=== PATIENT | female | born 1990 | race Two or more races ===

== ENCOUNTER → 2018-02-02 | Outpatient (CLI) | payer BC ==
[2015-12-09 13:15] VITALS: BP 126/88
--- NOTE | 2018-02-02 16:00 | KCIC ---
Thyroid ultrasound HISTORY: Hyperthyroidism. Right thyroid: * 3.4 cm x 1.4 cm x 1.4 cm * Homogeneous echotexture and vascularity. * No significant nodule. Isthmus: * 2 mm, appears normal Left thyroid: * 1.5 cm x 1.0 cm x 3.5 cm * Homogeneous echotexture and vascularity * No significant nodule IMPRESSION: Unremarkable thyroid ultrasound. Electronically signed by: Kings Amaya MD (02/02/2018 3:56 PM) [id number]
== END | disposition home or self-care (01) ==
LOC: KCIC US 15:13
PROVIDERS: ATTEND Physician Assistant Surgical
DX: E05.90 Thyrotoxicosis, unspecified without thyrotoxic crisis or storm (principal)
CPT/HCPCS: 76536

== ENCOUNTER → 2018-07-23 | Outpatient (CLI) | payer BC ==
[2015-12-09 13:15] VITALS: BP 126/88
--- NOTE | 2018-07-23 13:43 | KCIC ---
Indication: Supervision of normal . TECHNIQUE: Ultrasound OB greater than equal to 14 weeks COMPARISON: None FINDINGS: Single intrauterine seen in breech presentation. Cervix is closed and measures 4.0 cm in length. Four-chamber heart is seen with cardiac activity at the rate of 141 bpm. Stomach is seen. Placenta lies posterior in location. Urinary bladder is seen. Kidneys are seen. Biparietal diameter measures 4.65 cm corresponding to gestation age of 20 weeks 0 days. Head circumference measures 17.45 cm corresponding to gestation age of 20 weeks 0 days. Abdominal circumference measures 14.41 7 m corresponding to gestation age of 19 weeks 5 days. Femoral length measures 3.2 cm corresponding to gestation age of 20 weeks 0 days. Estimated weight of 318 g. Spine is seen. Upper extremity is are seen. Lower extremities are seen. Three-vessel cord seen. Amniotic fluid index measures 11.1 cm. Trace of the baby seen. Distance of the lower edge of the placenta to the cervix measures 4 cm. IMPRESSION: Single live viable intrauterine corresponding to gestation age of 20 weeks 0 days and due date of 12/06/2018. Electronically signed by: Ishmael Estrada DO (07/23/2018 1:38 PM) [id number]
== END | disposition home or self-care (01) ==
LOC: KCIC US 12:04
PROVIDERS: ATTEND Family Medicine
DX: O32.1XX0 Maternal care for breech presentation, not applicable or unspecified (principal); Z3A.20 20 weeks gestation of pregnancy
CPT/HCPCS: 76805

== ENCOUNTER 2018-12-01 07:51 | Inpatient (IN) | payer OTHER ==
[~2018-12-01] VITALS: Ht 149.9 cm; Wt 81.6 kg
[2018-12-01] MEDS ORDERED: 0.9 % SODIUM CHLORIDE 10 ML DISP.SYRIN. IV PRN ×2 (08:30→18:45)
[2018-12-01] MEDS ORDERED: TERBUTALINE 1 MG/ML VIAL. SQ PRN (08:30)
[2018-12-01] MEDS ORDERED: LIDOCAINE 1% PF 30 ML VIAL. INJ PRN (08:30)
[2018-12-01] MEDS ORDERED: IBUPROFEN 400 MG TABLET. PO PRN (08:30)
[2018-12-01] MEDS: IV RINGERS,LACTATED 1000ML 1,000 ML IV SCH ×2 (08:44→16:18)
[2018-12-01 08:56] LABS: BILIRUBIN,URINE NEGATIVE (NEG); CLARITY,URINE CLEAR; COLOR,URINE YELLOW; NITRITE,URINE NEGATIVE (NEG); PROTEIN,URINE NEGATIVE (NEG-TRACE); UROBILINOGEN,URINE 0.2 mg/dL (0.2 mg/dL)
[2018-12-01 08:58] LABS: BASO # 0.1 x10^3/uL (0.0-0.2); BASO % 1 % (0-3); EOS # 0.1 x10^3/uL (0.0-0.7); EOS % 1 % (0-3); HEMATOCRIT 36.6 % (36.0-47.0); HEMOGLOBIN 12.7 g/dL (12.0-15.5); LYMPH # 2.1 x10^3/uL (1.0-4.8); LYMPH % 23 % (24-48); MEAN CORPUSCULAR HEMOGLOBIN 33 pg (25-35); MEAN CORPUSCULAR HGB CONC 35 g/dL (31-37); MEAN CORPUSCULAR VOLUME 95 fL (79-100); MONO # 0.8 x10^3/uL (0.0-1.1); MONO % 8 % (0-9); NEUT # 6.1 x10^3uL (1.8-7.7); NEUT % 68 % (31-73); PLATELET COUNT 160 x10^3/uL (140-400); RED BLOOD COUNT 3.85 x10^6/uL (3.50-5.40); RED CELL DISTRIBUTION WIDTH 13.7 % (11.5-14.5); WHITE BLOOD COUNT 9.1 x10^3/uL (4.0-11.0)
[2018-12-01] MEDS ORDERED: AMPICILLIN SODIUM 2 GM in IV NORMAL SALINE 100ML 100 ML IV ONE (09:00)
[2018-12-01 09:06] LABS: SQUAMOUS EPITHELIAL CELL,UR MANY /LPF
[2018-12-01 09:07] LABS: BACTERIA,URINE MANY /HPF (0-FEW)
[2018-12-01 09:18] VITALS: BP 129/73
[2018-12-01] MEDS ORDERED: OMEP20TA8 PO (09:23)
[2018-12-01] MEDS ORDERED: PREN1TAB58 PO (09:23)
--- NOTE | 2018-12-01 10:12 | PDOC1 ---
OB - History Hx of Present Care: Good Care Ultrasounds: Normal mid trimester US Obstetrical Complications: None Medical Complications: None Past Family/Social History * Past Medical, Surgical, Family and Obstetric Histories reviewed from chart. Blood Type: O+ Rubella: Immune RPR/VDRL: Negative GBS Status: Unknown HBsAG: Negative OB - Chief Complaint & HPI Date of Admission: Date of Admission: Dec 01, 2018 at 07:51 Chief Complaint/History : 2 Para: 1 EDC: Dec 10, 2018 Reason for admission: active labor Admission Nurse Assessment Rev: No OB - Admission Exam Physical Exam Vitals: VS - Last 72 Hours, by Label Date Time Temp Pulse Resp B/P (MAP) Pulse Ox O2 Delivery O2 Flow Rate FiO2 12/01/18 09:18 99.2 77 18 129/73 (91) Room Air 99.2 HEENT: Normal, Nasal Mucosa Normal, Oropharynx Normal, Moist Membranes, Fontanelles Normal Heart: Regular Rate Lungs: Clear, Equal Abdomen: Gravid Extremities: Normal Pulses, No tenderness or swelling Reflexes: Normal Cervical Dilatation: 4cm Membranes: Intact Amniotic Fluid: Other Heart Rate: Normal Accelerations: Accelerations Present Decelerations: No decelerations Short Term Variability: Present Consumer Loan Officer Variability: Moderate Contractions on Admission: 6-10 Minutes Apart Date/Time Contractions Began;: 12/01/18 Frequency of Contractions: 0001 Intensity: Moderate A/P Pt is a 28yo at 38.5wga admitted in active labor 1)Active Labor- CEFM 2)GBS unknown- Ampicillin started. GBS test result should be coming in this ev ening or early tomorrow morning. Obtained 11/28/18. 3) 4)Having a boy, not wanting circumcision CARINA WHALEY MD Dec 01, 2018 10:12
[2018-12-01] MEDS: fentaNYL PF VIAL 100 MCG/2 ML VIAL IV PRN ×2 (12:09→13:36)
[2018-12-01] MEDS: OXYTOCIN 30 UNIT/500 ML PREMIX 500 ML IV PRN ×2 (12:18→16:17)
[2018-12-01] MEDS: AMPICILLIN SODIUM 1 GM in IV NORMAL SALINE 50ML 50 ML IV SCH ×3 (12:18→21:00)
[2018-12-01] MEDS ORDERED: BUTORPHANOL 2 MG/ML VIAL. ONE (14:34)
[2018-12-01] MEDS ORDERED: BUTORPHANOL 2 MG/ML VIAL. IV PRN (14:45)
[2018-12-01] MEDS ORDERED: IV RINGERS,LACTATED 1000ML 1,000 ML IV SCH (17:32)
[2018-12-01] MEDS ORDERED: ROPIVacaine 0.2% IN 0.9%NACL PF 40 MG/20 ML DISP.SYRIN. EPID PRN (17:45)
[2018-12-01] MEDS ORDERED: ONDANSETRON PF 4 MG/2 ML VIAL. IV PRN (17:45)
[2018-12-01] MEDS ORDERED: BUPIVACAINE MPF 0.25% 30 ML VIAL. EPID PRN (17:45)
[2018-12-01] MEDS ORDERED: IV RINGERS,LACTATED 500ML 500 ML IV PRN (17:45)
[2018-12-01] MEDS ORDERED: NALBUPHINE 10 MG/ML AMPUL. IV PRN (17:45)
[2018-12-01] MEDS ORDERED: L&D EPIDURAL SYRINGE 50 ML EPID PRN (17:45)
[2018-12-01] MEDS ORDERED: fentaNYL PF VIAL 100 MCG/2 ML VIAL EPI PRN (17:45)
[2018-12-01] MEDS ORDERED: ATROPINE 0.5 MG/5 ML DISP.SYRINGE. IV PRN (17:45)
[2018-12-01] MEDS ORDERED: PHENYLEPHRINE in 0.9% NACL PF 1 MG/10 ML SYRINGE. IV PRN (17:45)
[2018-12-01] MEDS ORDERED: PROCHLORPERAZINE 10 MG/2 ML VIAL. IV PRN (17:45)
[2018-12-01] MEDS ORDERED: NALOXONE 0.4 MG/ML VIAL. IV PRN (17:45)
[2018-12-01] MEDS ORDERED: ePHEDrine PF IN SALINE 50 MG/10 ML SYRINGE. IV PRN (17:45)
[2018-12-01] MEDS ORDERED: diphenhydrAMINE 50 MG/ML VIAL IV PRN (17:45)
--- NOTE | 2018-12-01 18:35 | PDOC ---
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 Whaley Signs of Intrauterine Infectio: None Shoulder Dystocia: No A/P Pt is a 28yo [id number] s/p at 38.5wga 1)- epidural right before delivery 2)GBS unknown- pt given abx during labor. GBS pending, result should be in tonight or tomorrow morning. 3) CARINA WHALEY MD Dec 01, 2018 18:35
[2018-12-01] MEDS ORDERED: OXYTOCIN 30 UNIT/500 ML PREMIX 500 ML IV PRN (18:45)
[2018-12-01] MEDS ORDERED: diphenhydrAMINE HCL 25 MG CAPSULE PO PRN (18:45)
[2018-12-01] MEDS ORDERED: SIMETHICONE 80 MG TAB.CHEW PO PRN (18:45)
[2018-12-01] MEDS ORDERED: MAG HYDROX/ALUMINUM HYD/SIMETH 30 ML ORAL.SUSP PO PRN (18:45)
[2018-12-01] MEDS ORDERED: PHENYLEPH/MINERAL OIL/PETROLAT RECTAL OINTMENT 57GM TUBE. RC PRN (18:45)
[2018-12-01] MEDS ORDERED: HYDROCORTISONE 1% TOPICAL OINTMENT 30GM TUBE. TP PRN (18:45)
[2018-12-01] MEDS: BENZOCAINE 20% TOPICAL AEROSOL SPRAY 57GM CAN. TP PRN (21:08)
[2018-12-01] MEDS: IBUPROFEN 400 MG TABLET. PO PRN (21:09)
[2018-12-01 22:00] VITALS: BP 112/70
[2018-12-02] MEDS: IV RINGERS,LACTATED 1000ML 1,000 ML IV SCH (00:24)
[2018-12-02] MEDS: AMPICILLIN SODIUM 1 GM in IV NORMAL SALINE 50ML 50 ML IV SCH (01:00)
[2018-12-02 01:15] VITALS: BP 115/69
[2018-12-02] MEDS: DOCUSATE SODIUM 100 MG CAPSULE. PO PRN ×2 (05:21→21:32)
[2018-12-02] MEDS: IBUPROFEN 400 MG TABLET. PO PRN ×2 (05:22→15:16)
--- NOTE | 2018-12-02 10:39 | PDOC ---
OB Progress Note Date of Service 12/02/18 Time of Evaluation 1030 Date: 12/01/18 Time: 1801 Notes Pt doing well. States that pain is well controlled. Bleeding slightly more than period, but no heavy clotting OB VITAL SIGNS: Temperature, Blood Pressure (115/69), Pulse (67) Lab Laboratory Tests Test 12/01/18 08:10 12/01/18 08:40 12/02/18 08:45 Urine Collection Type Clean catch Urine Color Yellow Urine Clarity Clear Urine pH 7.0 Urine Specific [place] 1.010 Urine Protein Negative mg/dL (NEG-TRACE) Urine Glucose (UA) Negative mg/dL (NEG) Urine Ketones (Stick) Negative mg/dL (NEG) Urine Blood Moderate (NEG) Urine Nitrite Negative (NEG) Urine Bilirubin Negative (NEG) Urine Urobilinogen Dipstick 0.2 mg/dL (0.2 mg/dL) Urine Leukocyte Esterase Negative (NEG) Urine RBC 1-2 /HPF (0-2) Urine WBC 5-10 /HPF (0-4) Urine Squamous Epithelial Cells Many /LPF Urine Bacteria Many /HPF (0-FEW) Urine Mucus Slight /LPF White Blood Count 9.1 x10^3/uL (4.0-11.0) Red Blood Count 3.85 x10^6/uL (3.50-5.40) Hemoglobin 12.7 g/dL (12.0-15.5) 11.2 g/dL (12.0-15.5) Hematocrit 36.6 % (36.0-47.0) Mean Corpuscular Volume 95 fL (79-100) Mean Corpuscular Hemoglobin 33 pg (25-35) Mean Corpuscular Hemoglobin Concent 35 g/dL (31-37) Red Cell Distribution Width 13.7 % (11.5-14.5) Platelet Count 160 x10^3/uL (140-400) Neutrophils (%) (Auto) 68 % (31-73) Lymphocytes (%) (Auto) 23 % (24-48) Monocytes (%) (Auto) 8 % (0-9) Eosinophils (%) (Auto) 1 % (0-3) Basophils (%) (Auto) 1 % (0-3) Neutrophils # (Auto) 6.1 x10^3uL (1.8-7.7) Lymphocytes # (Auto) 2.1 x10^3/uL (1.0-4.8) Monocytes # (Auto) 0.8 x10^3/uL (0.0-1.1) Eosinophils # (Auto) 0.1 x10^3/uL (0.0-0.7) Basophils # (Auto) 0.1 x10^3/uL (0.0-0.2) Treponema pallidum Antibody Nonreactive (Nonreactive) Laboratory Tests Test 12/02/18 08:45 Hemoglobin 11.2 g/dL (12.0-15.5) Medications Current Medications Sodium Chloride (Normal Saline Flush) 3 ml QSHIFT PRN IV AFTER MEDS AND BLOOD DRAWS; Start 12/01/18 at 08:30; Stop 12/02/18 at 07:09; Status DC Ringer's Solution 1,000 ml @ 125 mls/hr Q8H IV Last administered on 12/01/18at 16:18; Start 12/01/18 at 08:24; Stop 12/02/18 at 07:09; Status DC Fentanyl Citrate (Fentanyl 2ml Vial) 100 mcg PRN Q20MIN PRN IV Labor pain Last administered on 12/01/18at 13:36; Start 12/01/18 at 08:30; Stop 12/02/18 at 07:09; Status DC Terbutaline Sulfate (Brethine) 0.25 mg 1X PRN PRN SQ SEE COMMENTS; Start 12/01/18 at 08:30; Stop 12/02/18 at 07:10; Status DC Lidocaine HCl (Xylocaine 1% Pf 30ml Vial) 30 ml 1X PRN PRN INJ SEE COMMENTS; Start 12/01/18 at 08:30; Stop 12/02/18 at 07:09; Status DC Ampicillin Sodium 2 gm/Sodium Chloride 100 ml @ 200 mls/hr 1X ONCE IV Last administered on 12/01/18at 08:44; Start 12/01/18 at 09:00; Stop 12/02/18 at 07:09; Status DC Ampicillin Sodium 1 gm/Sodium Chloride 50 ml @ 100 mls/hr Q4H IV Last administered on 12/01/18at 16:49; Start 12/01/18 at 13:00; Stop 12/02/18 at 03:08; Status DC Oxytocin/Sodium Chloride 500 ml @ 0 mls/hr CONT PRN PRN IV Post delivery bleeding Last administered on 12/01/18at 16:17; Start 12/01/18 at 08:30; Stop 12/02/18 at 07:09; Status DC Ibuprofen (Motrin) 800 mg PRN Q6HRS PRN PO PAIN; Start 12/01/18 at 08:30; Stop 12/01/18 at 19:22; Status DC Butorphanol Tartrate (Stadol) 2 mg PRN Q4HRS PRN IV PAIN Last administered on 12/01/18at 14:36; Start 12/01/18 at 14:45; Stop 12/02/18 at 07:09; Status DC Butorphanol Tartrate (Stadol) 2 mg STK-MED ONCE .ROUTE ; Start 12/01/18 at 14:34; Stop 12/02/18 at 07:09; Status DC Ringer's Solution 1,000 ml @ 1,000 mls/hr Q1H IV ; Start 12/01/18 at 17:32; Stop 12/01/18 at 18:31; Status DC Ringer's Solution 500 ml @ 500 mls/hr 1X PRN PRN IV HYPOTENSION; Start 12/01/18 at 17:45; Stop 12/02/18 at 07:09; Status DC Ephedrine Sulfate (ePHEDrine PF IN SALINE SYRINGE) 10 mg PRN Q2MIN PRN IV IF SBP<90; Start 12/01/18 at 17:45; Stop 12/02/18 at 07:09; Status DC Phenylephrine HCl (PHENYLEPHRINE in 0.9% NACL PF) 0.05 mg PRN Q2MIN PRN IV SBP less than 90; Start 12/01/18 at 17:45; Stop 12/02/18 at 07:10; Status DC Atropine Sulfate (ATROPINE 0.5mg SYRINGE) 0.4 mg PRN Q2MIN PRN IV FOR SYMPTOMATIC BRADYCARDIA; Start 12/01/18 at 17:45; Stop 12/02/18 at 07:09; Status DC Naloxone HCl (Narcan) 0.04 mg PRN Q1MIN PRN IV SEE COMMENTS; Start 12/01/18 at 17:45; Stop 12/02/18 at 07:10; Status DC Fentanyl Citrate (Fentanyl 2ml Vial) 100 mcg PRN 1X PRN EPI FOR ANESTHESIA; Start 12/01/18 at 17:45; Stop 12/02/18 at 07:09; Status DC Bupivacaine HCl (Sensorcaine Mpf 0.25%) 10 ml PRN 1X PRN EPID FOR ANESTHESIA; Start 12/01/18 at 17:45; Stop 12/02/18 at 07:09; Status DC Ropivacaine/ Fentanyl/NS 50 ml @ 14 mls/hr CONT PRN EPID PAIN; Start 12/01/18 at 17:45; Stop 12/02/18 at 07:09; Status DC Ondansetron HCl (Zofran) 4 mg PRN Q6HRS PRN IV NAUSEA/VOMITING; Start 12/01/18 at 17:45; Stop 12/02/18 at 07:10; Status DC Prochlorperazine Edisylate (Compazine) 5 mg PRN Q6HRS PRN IV NAUSEA/VOMITING; Start 12/01/18 at 17:45; Stop 12/02/18 at 07:10; Status DC Diphenhydramine HCl (Benadryl) 12.5 mg PRN Q2HR PRN IV ITCHING; Start 12/01/18 at 17:45; Stop 12/02/18 at 07:09; Status DC Nalbuphine HCl (Nubain) 2.5 mg PRN Q2HR PRN IV ITCHING; Start 12/01/18 at 17:45; Stop 12/02/18 at 07:09; Status DC Ropivacaine/ Sodium Chloride (ROPIVacaine 0.2% - 0.9%NACL PF) 40 mg 1X PRN PRN EPID PER ANESTHESIA; Start 12/01/18 at 17:45; Stop 12/02/18 at 07:10; Status DC Sodium Chloride (Normal Saline Flush) 10 ml QSHIFT PRN IV AFTER MEDS AND BLOOD DRAWS; Start 12/01/18 at 18:45; Stop 12/02/18 at 07:09; Status DC Oxytocin/Sodium Chloride 500 ml @ 62.5 mls/hr CONT PRN IV SEE I/O RECORD; Start 12/01/18 at 18:45; Stop 12/02/18 at 02:45; Status DC Acetaminophen (Tylenol) 650 mg PRN Q6HRS PRN PO MILD PAIN / TEMP; Start 12/01/18 at 18:45 Ibuprofen (Motrin) 800 mg PRN Q8HRS PRN PO INFLAMMATION/PAIN PREVENTION Last administered on 12/02/18at 05:22; Start 12/01/18 at 18:45 Docusate Sodium (Colace) 100 mg PRN BID PRN PO CONSTIPATION Last administered on 12/02/18at 05:21; Start 12/01/18 at 18:45 Al Hydroxide/Mg Hydroxide (Mylanta Plus Xs) 30 ml PRN Q4HRS PRN PO HEARTBURN / GAS; Start 12/01/18 at 18:45 Simethicone (Gas-X) 80 mg PRN AFTMEALHC PRN PO GAS / BLOATING; Start 12/01/18 at 18:45 Diphenhydramine HCl (Benadryl) 25 mg PRN Q6HRS PRN PO ITCHING; Start 12/01/18 at 18:45 Benzocaine (Americaine) 1 spray PRN QID PRN TP TOPICAL PAIN Last administered on 12/01/18at 21:08; Start 12/01/18 at 18:45 Phenyleph/Shark Oil/Min Oil/Petrol (Preparation H) 1 isla PRN QID PRN RC RECTAL PAIN; Start 12/01/18 at 18:45 Hydrocortisone (Cortaid) 1 ilsa PRN QID PRN TP PERINEAL PAIN; Start 12/01/18 at 18:45 Active Scripts Active Reported Omeprazole 20 Mg Tablet.dr 20 Mg PO DAILY Vitamins ( Vits W-Ca,Fe,Fa(<1MG)) 1 Each Tablet 1 Tab PO DAILY Exam GEN: NAD, AOx3 HEENT: MMM, EOMI, no scleral icterus/injection Cardiac: RRR, no M/R/G Lungs: CTAB Ab: fundus 2cm below umbilicus Ext: 1+ pitting edema LE bilaterally Neuro: CN2-12 GI Assessment Pt is a 28yo [id number] s/p at 38.5wga 1)- epidural right before delivery. Pain well controlled with Ibuprofen 2)GBS unknown- pt given abx during labor. GBS pending, should be in by 11am this morning 3) 4)Anemia- mild CARINA WHALEY MD Dec 02, 2018 10:39
[2018-12-02 10:49] VITALS: BP 99/68
[2018-12-02 18:12] VITALS: BP 114/78
[2018-12-02 21:30] VITALS: BP 108/69
[2018-12-02] MEDS: ACETAMINOPHEN 325 MG TABLET. PO PRN (21:32)
[2018-12-03] MEDS: IBUPROFEN 400 MG TABLET. PO PRN (03:54)
--- NOTE | 2018-12-03 08:07 | PDOC3 ---
OB DISCHARGE SUMMARY DATE OF ADMISSION: 12/01/18 DATE OF DISCHARGE: 12/03/18 REASON FOR ADMISSION: Onset of labor INTRAPARTUM PROCEDURES: Spontanous Vag Deliv, Perineal Laceration DISCHARGE DIAGNOSIS: Term Delivered DISCHARGE INFORMATION: Activity (As tolerated), Diet (Regular), Medications (Ibuprofen 800mg TID, Docusate 100mg po qday), Instructions (F/u With Dr. Whaley in 4-6 weeks), Discharge to (Home) HOSPITAL COURSE Pt is a 28yo [id number] s/p at 38.5wga 1)- epidural right before delivery. Pain well controlled with Ibuprofen 2)GBS initially unknown- pt received 3 doses of abx during labor. GBS done on 11/28 ended up resulting negative. 3) 4)Anemia- mild CARINA WHALEY MD Dec 03, 2018 08:07
[2018-12-03 08:10] VITALS: BP 116/83
[2018-12-03] MEDS: DOCUSATE SODIUM 100 MG CAPSULE. PO PRN (08:56)
[2018-12-03] MEDS: ACETAMINOPHEN 325 MG TABLET. PO PRN (08:56)
[2018-12-03 10:05] VITALS: BP 109/73
--- NOTE | 2018-12-03 10:15 | NUR ---
Discharge Note: Pt. denies needs or questions. Pt. escorted by Jg Williamson RN to vehicle with NB in car seat, significant other, and belongings present. NB on car seat base in back seat of vehicle, rear facing. Pt. discharged home with family. Jg Williamson RN
== END 2018-12-03 10:15 | disposition home or self-care (01) | DRG 768 ==
LOC: OBSVTOIN 07:51 → 3 SO LND 07:51 → 3 NORTH 21:15
PROVIDERS: ADMIT Family Medicine; ATTEND Family Medicine
PROC: 10E0XZZ Delivery of Products of Conception, External Approach (ICD-10-PCS; principal; 2018-12-01)
PROC: 0DQR0ZZ Repair Anal Sphincter, Open Approach (ICD-10-PCS; 2018-12-01)
PROC: 00HU33Z Insertion of Infusion Device into Spinal Canal, Percutaneous Approach (ICD-10-PCS; 2018-12-01)
PROC: 3E0R3BZ Introduction of Anesthetic Agent into Spinal Canal, Percutaneous Approach (ICD-10-PCS; 2018-12-01)
DX: O69.81X0 Labor and delivery complicated by cord around neck, without compression, not applicable or unspecified (principal); Z37.0 Single live birth; O70.20 Third degree perineal laceration during delivery, unspecified; Z3A.38 38 weeks gestation of pregnancy; D64.9 Anemia, unspecified
CPT/HCPCS: 36415; 81001; 85018; 85025; 86592; 86850; 86900; 86901; 87086; J0290; J2590; J3010; J7120